=== PATIENT | female | born 1985 | race Caucasian/White ===

== ENCOUNTER 2018-03-03 17:21 | Emergency (ER) | payer SELFPAY ==
[~2018-03-03] VITALS: Ht 167.6 cm; Wt 111.8 kg
[~2018-03-03 17:21] MED LIST: BUPR150T8 PO; HYDR-3965 PO; HYDR-4383 PO; IBUP-1986 PO; NORE1TAB39 PO; ONDA4TAB59 PO; PENI500T2 PO; PSEU-259 CORPAK
[2018-03-03] MEDS ORDERED: ondansetron/PF 4mg/2ml inj IV ONE ×3 (17:35→19:10)
[2018-03-03] MEDS ORDERED: fentaNYL/PF 50MCG/1 ML 2ML syringe IV ONE ×3 (17:35→19:10)
[2018-03-03] MEDS ORDERED: etomidate 2mg/ml inj. IV ONE ×2 (18:30→20:25)
[2018-03-03] MEDS ORDERED: HYDR-4353 PO (20:19)
[2018-03-03] MEDS ORDERED: ONDA4TAB9 PO (20:19)
[2018-03-03 20:45] VITALS: BP 135/75
[2018-03-03] MEDS ORDERED: HYDROcodone/acetaminophen 10/325mg tab PO ONE (21:00)
[2018-03-03] MEDS ORDERED: ondansetron 4mg rapidly disintigrating tab PO ONE (21:00)
== END 2018-03-03 21:19 | disposition home or self-care (01) ==
LOC: ER 17:22
DX: S82.61XA Displaced fracture of lateral malleolus of right fibula, initial encounter for closed fracture (principal); F12.90 Cannabis use, unspecified, uncomplicated; Z90.89 Acquired absence of other organs; Z98.890 Other specified postprocedural states; Z79.899 Other long term (current) drug therapy; W18.49XA Other slipping, tripping and stumbling without falling, initial encounter; Y93.01 Activity, walking, marching and hiking; Y92.89 Other specified places as the place of occurrence of the external cause; Y99.9 Unspecified external cause status
CPT/HCPCS: 27788; 73600; 73610; 73630; 99152; 99285; J2405; J3010; J3490

== ENCOUNTER 2018-03-06 03:39 | Emergency (ER) | payer SELFPAY ==
[~2018-03-06] VITALS: Ht 167.6 cm; Wt 110.0 kg
[~2018-03-06 03:39] MED LIST changes: +HYDR-4353 PO; +ONDA4TAB9 PO
[2018-03-06] MEDS ORDERED: morphine 4 MG/ML inj SYRINge IM ONE (04:05)
[2018-03-06] MEDS ORDERED: ondansetron/PF 4mg/2ml inj IM ONE (04:05)
[2018-03-06] MEDS ORDERED: morphine 10mg/ml inj. IM ONE (04:10)
[2018-03-06 05:15] VITALS: BP 139/68
== END 2018-03-06 05:18 | disposition home or self-care (01) ==
LOC: ER 03:39
DX: S82.61XD Displaced fracture of lateral malleolus of right fibula, subsequent encounter for closed fracture with routine healing (principal); F12.90 Cannabis use, unspecified, uncomplicated; Z90.89 Acquired absence of other organs; Z98.890 Other specified postprocedural states; Z79.899 Other long term (current) drug therapy; W18.49XD Other slipping, tripping and stumbling without falling, subsequent encounter
CPT/HCPCS: 29515; 96372; 99284; J2270; J2405

== ENCOUNTER 2018-03-08 22:22 | Emergency (ER) | payer SELFPAY ==
[~2018-03-08] VITALS: Ht 167.6 cm; Wt 110.0 kg
[2018-03-08] MEDS ORDERED: ondansetron/PF 4mg/2ml inj IV ONE (23:55)
[2018-03-08] MEDS ORDERED: ringers solution, lactated 1000ml IV soln IV ONE (23:55)
[2018-03-08] MEDS ORDERED: diphenhydrAMINE 50 mg/ml inj IV ONE (23:55)
[2018-03-09] MEDS ORDERED: proCHLORperazine 10 MG/2 ml inj IV PRN (00:05)
[2018-03-09] MEDS ORDERED: ONDA4TAB6 PO (00:24)
[2018-03-09 00:55] LABS: PREOP URINE HCG NEGATIVE (NEGATIVE)
[2018-03-09 01:29] VITALS: BP 146/89
== END 2018-03-09 02:25 | disposition home or self-care (01) ==
LOC: ER 22:22
DX: S82.64XD Nondisplaced fracture of lateral malleolus of right fibula, subsequent encounter for closed fracture with routine healing (principal); G43.A0 Cyclical vomiting, in migraine, not intractable; F12.90 Cannabis use, unspecified, uncomplicated; Z98.890 Other specified postprocedural states; Z79.899 Other long term (current) drug therapy; X58.XXXD Exposure to other specified factors, subsequent encounter
CPT/HCPCS: 29515; 73600; 81025; 96361; 96374; 96375; 99284; J0780; J1200; J2405; J7030; J7120

== ENCOUNTER 2018-03-13 10:19 | Outpatient (CLI) | payer SELFPAY ==
[~2018-03-13 10:19] MED LIST changes: +ONDA4TAB6 PO
[2018-03-13 10:21] VITALS: BP 149/83
[2018-03-13 13:14] VITALS: BP 149/83
[2018-03-14] MEDS ORDERED: CYAN-19 PO (11:25)
[2018-03-14] MEDS ORDERED: CHOL10002 PO (11:25)
[2018-03-14] MEDS ORDERED: CITA40TA11 PO (11:25)
[2018-03-14] MEDS ORDERED: IBUP-1984 PO (11:25)
== END 2018-03-13 11:17 | disposition home or self-care (01) ==
LOC: ORTHO 10:19
PROVIDERS: ATTEND Nurse Practitioner Family
DX: S82.61XA Displaced fracture of lateral malleolus of right fibula, initial encounter for closed fracture (principal); S93.04XA Dislocation of right ankle joint, initial encounter; F32.9 Major depressive disorder, single episode, unspecified; G43.909 Migraine, unspecified, not intractable, without status migrainosus; F12.90 Cannabis use, unspecified, uncomplicated; F17.200 Nicotine dependence, unspecified, uncomplicated; Z79.899 Other long term (current) drug therapy; W00.2XXA Other fall from one level to another due to ice and snow, initial encounter; Y93.29 Activity, other involving ice and snow; Y92.89 Other specified places as the place of occurrence of the external cause; Y99.8 Other external cause status
CPT/HCPCS: 99215

== ENCOUNTER 2018-03-15 09:23 | Day surgery (SDC) | payer SELFPAY ==
[2018-03-14 11:30] LABS: BASOPHILS % (AUTO) 0.6 % (0-1); EOSINOPHILS # (AUTO) 0.2 X10'3 (0-0.9); EOSINOPHILS % (AUTO) 2.2 % (0-6); LYMPHOCYTES # (AUTO) 1.6 X10'3 (1.1-4.8); LYMPHOCYTES % (AUTO) 20.3 % (21-51); MEAN CORPUSCULAR HEMOGLOBIN 28.1 PG (27.0-31.0); MEAN CORPUSCULAR HGB CONC 33.2 % (33.0-36.5); MEAN CORPUSCULAR VOLUME 84.6 FL (78-98); MEAN PLATELET VOLUME 9.4 FL (7.4-10.4); MONOCYTES # (AUTO) 0.5 X10'3 (0-0.9); MONOCYTES % (AUTO) 5.8 % (2-12); NEUTROPHILS # (AUTO) 5.8 X10'3 (1.8-7.7); NEUTROPHILS % (AUTO) 71.1 % (42-75); PRE OP HEMATOCRIT 40.5 % (35.0-45.0); PRE OP HEMOGLOBIN 13.4 g/dL (12.0-16.0); PRE OP PLATELET COUNT 280 X10'3 (140-440); RED BLOOD COUNT 4.78 X10'6 (4.20-5.60); RED CELL DISTRIBUTION WIDTH 13.7 % (11.5-14.5)
[2018-03-14 11:46] LABS: ALBUMIN 3.6 G/DL (3.4-5.0); ALKALINE PHOSPHATASE 64 IU/L (46-116); BLOOD UREA NITROGEN 9 MG/DL (7-18); BUN/CREATININE RATIO 14.3 (6.6-38.0); CALCIUM 9.1 MG/DL (8.5-10.1); CHLORIDE 105 MMOL/L (99-107); CREATININE 0.63 MG/DL (0.40-0.90); PRE OP ALT 23 U/L (30-65); PRE OP ANION GAP 12 (8-16); PRE OP AST 13 U/L (10-37); PRE OP BILIRUB, TOTAL 0.6 MG/DL (0.0-1.0); PRE OP GLUCOSE 97 MG/DL (70-104); PRE OP POTASSIUM 3.4 MMOL/L (3.4-5.1); PRE OP SODIUM 141 MMOL/L (135-145); TOTAL CARBON DIOXIDE 23.7 MMOL/L (24-32); TOTAL PROTEIN 7.3 G/DL (6.4-8.2); eGFR > 90 ML/MIN
[2018-03-14 11:53] LABS: HCG SERUM QL NEGATIVE
[~2018-03-15] VITALS: Ht 167.6 cm; Wt 111.1 kg
[2018-03-15] VITALS (9 sets, daily range): BP systolic 132–171; BP diastolic 85–92
[~2018-03-15 09:23] MED LIST changes: -BUPR150T8 PO; +CHOL10002 PO; +CITA40TA11 PO; +CYAN-19 PO; -HYDR-3965 PO; -HYDR-4353 PO; -HYDR-4383 PO; +IBUP-1984 PO; -IBUP-1986 PO; -NORE1TAB39 PO; -ONDA4TAB59 PO; -ONDA4TAB6 PO; -ONDA4TAB9 PO; -PENI500T2 PO; -PSEU-259 CORPAK; +cefazolin/dext.iso 2gm/50ml 50 ML IV ONE; +famotidine 20mg tablet PO ONE; +ringers solution, lacted 1,000 ML IV SCH; +vancomycin inj 1,500 MG in normal saline 300ml IV soln IV ONE
[2018-03-15] MEDS ORDERED: midazolam 2 mg/2 ml injection ONE ×2 (11:20→11:37)
[2018-03-15] MEDS ORDERED: fentaNYL/PF 50MCG/1 ML 2ML syringe ONE ×2 (11:36→12:31)
[2018-03-15] MEDS ORDERED: ROPIVAcaine 0.5% (5mg/ml) 30ml vial ONE (11:39)
[2018-03-15] MEDS ORDERED: propofol inj 20 ML IV ONE ×2 (11:39→12:32)
[2018-03-15] MEDS ORDERED: dexamethasone sod phosphate 4mg/ml inj. ONE (12:05)
[2018-03-15] MEDS ORDERED: sevoflurane 250ml liquid IH ONE (12:08)
[2018-03-15] MEDS ORDERED: ceFAZolin 1000mg inj ONE (12:23)
[2018-03-15] MEDS ORDERED: BUPIVAcaine/PF 2.5mg/ml (0.25%) 10ml vial ONE (12:30)
[2018-03-15] MEDS ORDERED: ringers solution, lacted 1,000 ML IV SCH (12:41)
[2018-03-15] MEDS ORDERED: proCHLORperazine 10 MG/2 ml inj IV PRN (12:45)
[2018-03-15] MEDS ORDERED: morphine 4 MG/ML inj SYRINge IV PRN ×2 (12:45)
[2018-03-15] MEDS ORDERED: meperidine/PF 25mg/ml syringe IV PRN ×3 (12:45)
[2018-03-15] MEDS ORDERED: ondansetron/PF 4mg/2ml inj IV PRN (12:45)
[2018-03-15] MEDS ORDERED: ketorolac trometh. 30mg/ml inj. ONE (13:01)
--- NOTE | 2018-03-15 13:15 | NUR ---
Received from OR via bed, accompanied by Anesthesiologist. Report received. Initial physical assessment done and recorded.
[2018-03-15] MEDS ORDERED: HYDROcodone/acetaminophen 10/325mg tab PO ONE (13:35)
--- NOTE | 2018-03-15 14:40 | NUR ---
Discharge criteria met, discharge instructions given, demonstrates verbal understanding. Discharged home in good condition. No complains of pain during post op period, no pain meds given no complaints
== END 2018-03-15 14:15 | disposition home or self-care (01) ==
LOC: PAS 09:23
PROVIDERS: ATTEND Orthopaedic Surgery
DX: S82.61XA Displaced fracture of lateral malleolus of right fibula, initial encounter for closed fracture (principal); S93.431A Sprain of tibiofibular ligament of right ankle, initial encounter; F41.8 Other specified anxiety disorders; F32.9 Major depressive disorder, single episode, unspecified; G43.909 Migraine, unspecified, not intractable, without status migrainosus; F41.0 Panic disorder [episodic paroxysmal anxiety]; F12.90 Cannabis use, unspecified, uncomplicated; E66.9 Obesity, unspecified; Z68.39 Body mass index [BMI] 39.0-39.9, adult; Z87.2 Personal history of diseases of the skin and subcutaneous tissue; Z79.891 Long term (current) use of opiate analgesic; Z79.1 Long term (current) use of non-steroidal anti-inflammatories (NSAID); Z79.2 Long term (current) use of antibiotics; Z90.89 Acquired absence of other organs; Z98.890 Other specified postprocedural states; Z79.899 Other long term (current) drug therapy; W00.2XXA Other fall from one level to another due to ice and snow, initial encounter; Y93.01 Activity, walking, marching and hiking; Y92.89 Other specified places as the place of occurrence of the external cause; Y99.8 Other external cause status
CPT/HCPCS: 27792; 27829; 36415; 80053; 84703; 85025; A6449; J0690; J1100; J1885; J2250; J2405; J2704; J3010; J3370; J3490; A7000; J2795; J7120

== ENCOUNTER 2018-03-28 08:16 | Outpatient (CLI) | payer SELFPAY ==
[~2018-03-28 08:16] MED LIST changes: -cefazolin/dext.iso 2gm/50ml 50 ML IV ONE; -famotidine 20mg tablet PO ONE; -ringers solution, lacted 1,000 ML IV SCH; -vancomycin inj 1,500 MG in normal saline 300ml IV soln IV ONE
[2018-03-28 08:17] VITALS: BP 128/75
== END 2018-03-28 09:15 | disposition home or self-care (01) ==
LOC: ORTHO 08:16
PROVIDERS: ATTEND Nurse Practitioner Family
DX: S82.61XD Displaced fracture of lateral malleolus of right fibula, subsequent encounter for closed fracture with routine healing (principal); S93.04XD Dislocation of right ankle joint, subsequent encounter; F32.9 Major depressive disorder, single episode, unspecified; G43.909 Migraine, unspecified, not intractable, without status migrainosus; F12.90 Cannabis use, unspecified, uncomplicated; F17.200 Nicotine dependence, unspecified, uncomplicated; Z79.899 Other long term (current) drug therapy; W00.2XXD Other fall from one level to another due to ice and snow, subsequent encounter
CPT/HCPCS: 73600; 99213

== ENCOUNTER 2018-04-03 10:43 | Outpatient (CLI) | payer SELFPAY ==
[2018-04-03 10:39] VITALS: BP 138/84
== END 2018-04-03 11:37 | disposition home or self-care (01) ==
LOC: ORTHO 10:43
PROVIDERS: ATTEND Nurse Practitioner Family
DX: S82.831D Other fracture of upper and lower end of right fibula, subsequent encounter for closed fracture with routine healing (principal); S93.04XD Dislocation of right ankle joint, subsequent encounter; F17.200 Nicotine dependence, unspecified, uncomplicated; F12.90 Cannabis use, unspecified, uncomplicated; W00.0XXD Fall on same level due to ice and snow, subsequent encounter
CPT/HCPCS: 99214

== ENCOUNTER 2018-04-16 11:04 | Outpatient (CLI) | payer BC ==
[2018-04-16 11:04] VITALS: BP 117/73
== END 2018-04-16 12:14 | disposition home or self-care (01) ==
LOC: ORTHO 11:04
PROVIDERS: ATTEND Nurse Practitioner Family
DX: S82.831D Other fracture of upper and lower end of right fibula, subsequent encounter for closed fracture with routine healing (principal); F17.200 Nicotine dependence, unspecified, uncomplicated; Z79.899 Other long term (current) drug therapy; W01.0XXD Fall on same level from slipping, tripping and stumbling without subsequent striking against object, subsequent encounter
CPT/HCPCS: 73600; G0463

== ENCOUNTER 2018-05-13 13:27 | Outpatient (CLI) | payer BC ==
[2018-05-13 13:27] VITALS: BP 144/91
== END 2018-05-13 14:06 | disposition home or self-care (01) ==
LOC: ORTHO 13:27
PROVIDERS: ATTEND Nurse Practitioner Family
DX: S82.61XD Displaced fracture of lateral malleolus of right fibula, subsequent encounter for closed fracture with routine healing (principal); S93.04XD Dislocation of right ankle joint, subsequent encounter; F17.200 Nicotine dependence, unspecified, uncomplicated; W00.0XXD Fall on same level due to ice and snow, subsequent encounter
CPT/HCPCS: 73600; 99213

== ENCOUNTER 2018-06-04 13:28 | Outpatient (CLI) | payer BC ==
[2018-06-04 13:26] VITALS: BP 133/89
== END 2018-06-04 14:32 | disposition home or self-care (01) ==
LOC: ORTHO 13:28
PROVIDERS: ATTEND Nurse Practitioner Family
DX: S82.831D Other fracture of upper and lower end of right fibula, subsequent encounter for closed fracture with routine healing (principal); S93.04XD Dislocation of right ankle joint, subsequent encounter; G43.909 Migraine, unspecified, not intractable, without status migrainosus; F41.8 Other specified anxiety disorders; W00.0XXD Fall on same level due to ice and snow, subsequent encounter
CPT/HCPCS: 73610; 99213

== ENCOUNTER 2022-03-16 14:56 | Outpatient (CLI) | payer BC ==
[~2022-03-16 14:56] MED LIST changes: -CITA40TA11 PO; +CITA40TA32 PO; -CYAN-19 PO; +CYAN-51 PO
== END 2022-03-16 23:59 | disposition home or self-care (01) ==
LOC: RAD 14:56
PROVIDERS: ATTEND Chiropractor
DX: M47.812 Spondylosis without myelopathy or radiculopathy, cervical region (principal); M48.02 Spinal stenosis, cervical region; M25.78 Osteophyte, vertebrae
CPT/HCPCS: 72050

== ENCOUNTER 2022-08-03 08:37 | Outpatient (CLI) | payer BC ==
[2022-08-03 11:30] LABS: CLARITY,URINE SLIGHTLY CLOUDY (Clear); COLOR,URINE YELLOW (Yellow); GLUCOSE, URINE NEGATIVE (Neg); KETONES,URINE NEGATIVE (Neg); LEUKOCYTE ESTERASE ,URINE NEGATIVE (Neg); NITRITES, URINE NEGATIVE (Neg); OCCULT BLOOD,URINE NEGATIVE (Neg); PROTEIN,URINE NEGATIVE (Neg); UROBILINOGEN,URINE 0.2 E.U/dL (0.2-1.0)
[2022-08-03 11:34] LABS: UA COLLECTION TYPE CLN CATCH MIDSTREAM
[2022-08-03 11:38] LABS: BACTERIA,URINE FEW /HPF (Neg); BASOPHILS # (AUTO) 0.1 X10'3 (0-0.2); BASOPHILS % (AUTO) 0.9 % (0-1); EOSINOPHILS # (AUTO) 0.2 X10'3 (0-0.9); EOSINOPHILS % (AUTO) 1.6 % (0-6); HEMATOCRIT 42.5 % (35.0-45.0); HEMOGLOBIN 14.2 g/dl (12.0-16.0); LYMPHOCYTES # (AUTO) 2.4 X10'3 (1.1-4.8); LYMPHOCYTES % (AUTO) 22.3 % (21-51); MEAN CORPUSCULAR HEMOGLOBIN 28.3 PG (27.0-31.0); MEAN CORPUSCULAR HGB CONC 33.5 g/dL (33.0-36.5); MEAN CORPUSCULAR VOLUME 84.5 FL (78-98); MEAN PLATELET VOLUME 9.1 FL (7.4-10.4); MONOCYTES # (AUTO) 0.8 X10'3 (0-0.9); MONOCYTES % (AUTO) 7.6 % (2-12); NEUTROPHILS # (AUTO) 7.4 X10'3 (1.8-7.7); NEUTROPHILS % (AUTO) 67.6 % (42-75); PLATELET COUNT 270 X10'3 (140-440); RBC,URINE NONE SEEN /HPF (0-2); RED BLOOD COUNT 5.02 X10'6 (4.20-5.60); RED CELL DISTRIBUTION WIDTH 13.6 % (11.5-14.5); WBC,URINE 0-4 /HPF (0-4)
[2022-08-03 11:40] LABS: SQUAMOUS EPITHELIAL CELL,UR FEW /LPF (FEW)
[2022-08-03 11:53] LABS: ALANINE AMINOTRANSFERASE 28 U/L (12-78); ALBUMIN 3.9 G/DL (3.4-5.0); ALKALINE PHOSPHATASE 85 IU/L (46-116); ANION GAP 8 (8-16); ASPARTATE AMINO TRANSFERASE 15 U/L (10-37); BILIRUBIN,TOTAL 0.4 MG/DL (0.1-1.0); BLOOD UREA NITROGEN 8 MG/DL (7-18); BUN/CREATININE RATIO 11.9 (10.0-20.0); CALCIUM 8.7 MG/DL (8.5-10.1); CHLORIDE 105 MMOL/L (99-107); CHOL/HDL RATIO 4.7 (0.00-4.99); CHOLESTEROL 203 MG/DL (0-200); CREATININE 0.67 MG/DL (0.40-0.90); GLUCOSE 91 MG/DL (70-104); HDL CHOLESTEROL 43 MG/DL (35-60); LDL CHOLESTEROL 136 MG/DL (50-100); POTASSIUM 3.6 MMOL/L (3.5-5.1); SODIUM 139 MMOL/L (135-145); TOTAL CARBON DIOXIDE 25.8 MMOL/L (24-32); TOTAL PROTEIN 7.9 G/DL (6.4-8.2); TRIGLYCERIDES 100 MG/DL (20-135); eGFR > 90 ML/MIN
== END 2022-08-03 23:59 | disposition home or self-care (01) ==
LOC: LAB 08:37
PROVIDERS: ATTEND Nurse Practitioner
DX: G43.111 Migraine with aura, intractable, with status migrainosus (principal); Z76.89 Persons encountering health services in other specified circumstances; E66.9 Obesity, unspecified; Z68.36 Body mass index [BMI] 36.0-36.9, adult; F90.9 Attention-deficit hyperactivity disorder, unspecified type; F41.9 Anxiety disorder, unspecified; F32.A Depression, unspecified
CPT/HCPCS: 36415; 80053; 80061; 81001; 84439; 84443; 85025

== ENCOUNTER 2022-12-28 07:32 | Emergency (ER) | payer BC ==
[~2022-12-28] VITALS: Ht 167.6 cm; Wt 123.6 kg
[~2022-12-28 07:32] MED LIST changes: +CYAN-104 PO; -CYAN-51 PO
[2022-12-28 07:34] VITALS: BP 178/113; PULSE 92; RESP 18; O2SAT 99
[2022-12-28] MEDS ORDERED: ESCI20TA17 PO (09:27)
[2022-12-28 09:36] VITALS: TEMP 98.5
== END 2022-12-28 09:41 | disposition home or self-care (01) ==
LOC: ER 07:33
DX: F31.9 Bipolar disorder, unspecified (principal); Z76.0 Encounter for issue of repeat prescription; G43.909 Migraine, unspecified, not intractable, without status migrainosus; F12.10 Cannabis abuse, uncomplicated; Z79.899 Other long term (current) drug therapy
CPT/HCPCS: 99281

== ENCOUNTER 2023-05-08 13:11 | Outpatient (CLI) | payer BC ==
[~2023-05-08 13:11] MED LIST changes: +ESCI20TA17 PO
[2023-05-08 13:56] LABS: BASOPHILS # (AUTO) 0.1 X10'3 (0-0.2); BASOPHILS % (AUTO) 0.7 % (0-1); EOSINOPHILS # (AUTO) 0.1 X10'3 (0-0.9); HEMATOCRIT 44.2 % (35.0-45.0); HEMOGLOBIN 14.6 g/dl (12.0-16.0); LYMPHOCYTES # (AUTO) 2.6 X10'3 (1.1-4.8); LYMPHOCYTES % (AUTO) 22.6 % (21-51); MEAN CORPUSCULAR HEMOGLOBIN 27.7 PG (27.0-31.0); MEAN CORPUSCULAR HGB CONC 33.1 g/dL (33.0-36.5); MEAN CORPUSCULAR VOLUME 83.5 FL (78-98); MEAN PLATELET VOLUME 8.8 FL (7.4-10.4); MONOCYTES # (AUTO) 0.8 X10'3 (0-0.9); MONOCYTES % (AUTO) 6.5 % (2-12); NEUTROPHILS # (AUTO) 8.1 X10'3 (1.8-7.7); NEUTROPHILS % (AUTO) 69.2 % (42-75); PLATELET COUNT 264 X10'3 (140-440); RED BLOOD COUNT 5.29 X10'6 (4.20-5.60); RED CELL DISTRIBUTION WIDTH 13.2 % (11.5-14.5); WHITE BLOOD COUNT 11.7 X10'3 (4.5-11.0)
[2023-05-08 14:12] LABS: ALANINE AMINOTRANSFERASE 36 U/L (12-78); ALKALINE PHOSPHATASE 93 IU/L (46-116); ANION GAP 10 (8-16); ASPARTATE AMINO TRANSFERASE 16 U/L (10-37); BILIRUBIN,TOTAL 0.6 MG/DL (0.1-1.0); BLOOD UREA NITROGEN 9 MG/DL (7-18); BUN/CREATININE RATIO 15.5 (10.0-20.0); CHLORIDE 106 MMOL/L (99-107); CHOL/HDL RATIO 3.7 (0.00-4.99); CHOLESTEROL 200 MG/DL (0-200); CREATININE 0.58 MG/DL (0.40-0.90); FREE T4 (FREE THYROXINE) 0.82 NG/DL (0.73-1.40); GLUCOSE 97 MG/DL (70-104); HDL CHOLESTEROL 54 MG/DL (35-60); LDL CHOLESTEROL 115 MG/DL (50-100); SODIUM 142 MMOL/L (135-145); THYROID STIMULATING HORMONE 2.85 ulU/ml (0.34-4.50); TOTAL CARBON DIOXIDE 25.9 MMOL/L (24-32); TOTAL PROTEIN 8.1 G/DL (6.4-8.2); TRIGLYCERIDES 96 MG/DL (20-135); eGFR > 90 ML/MIN
== END 2023-05-08 23:59 | disposition home or self-care (01) ==
LOC: LAB 13:11
PROVIDERS: ATTEND Nurse Practitioner
DX: F90.9 Attention-deficit hyperactivity disorder, unspecified type (principal); G43.111 Migraine with aura, intractable, with status migrainosus; E66.9 Obesity, unspecified; F41.9 Anxiety disorder, unspecified; F32.A Depression, unspecified; Z76.89 Persons encountering health services in other specified circumstances; Z68.36 Body mass index [BMI] 36.0-36.9, adult
CPT/HCPCS: 80053; 80061; 84439; 84443; 85025

== ENCOUNTER 2023-08-28 09:15 | Outpatient (CLI) | payer BC | END 2023-08-28 23:59 | disposition home or self-care (01) | LOC: RAD 09:15 | PROVIDERS: ATTEND Registered Nurse | DX: G43.111 Migraine with aura, intractable, with status migrainosus (principal) | CPT/HCPCS: 70450; 74177 ==

== ENCOUNTER 2023-11-23 07:33 | Outpatient (CLI) | payer BC ==
[2023-11-27 08:10] LABS: FOLATE SERUM(FOLIC) 10.1 ng/mL (>3.0)
[2023-11-27 13:24] LABS: ESTRADIOL 88.1 pg/mL (.)
== END 2023-11-23 23:59 | disposition home or self-care (01) ==
LOC: LAB 07:33
PROVIDERS: ATTEND Registered Nurse
DX: Z00.00 Encounter for general adult medical examination without abnormal findings (principal); R73.09 Other abnormal glucose
CPT/HCPCS: 36415; 82607; 82670; 82679; 82746

== ENCOUNTER 2024-04-04 06:37 | Outpatient (CLI) | payer BC | END 2024-04-04 23:59 | disposition home or self-care (01) | LOC: MRI02 06:37 | PROVIDERS: ATTEND Nurse Practitioner Family | DX: M50.222 Other cervical disc displacement at C5-C6 level (principal); M50.323 Other cervical disc degeneration at C6-C7 level; M48.02 Spinal stenosis, cervical region; G43.109 Migraine with aura, not intractable, without status migrainosus | CPT/HCPCS: 72141 ==

== ENCOUNTER 2024-04-16 14:39 | Outpatient (CLI) | payer BC ==
[2024-04-16 14:59] LABS: BASOPHILS # (AUTO) 0.1 X10'3 (0-0.2); BASOPHILS % (AUTO) 0.9 % (0-1); EOSINOPHILS # (AUTO) 0.2 X10'3 (0-0.9); EOSINOPHILS % (AUTO) 1.5 % (0-6); HEMATOCRIT 41.4 % (35.0-45.0); HEMOGLOBIN 14.3 g/dl (12.0-16.0); LYMPHOCYTES # (AUTO) 3.2 X10'3 (1.1-4.8); LYMPHOCYTES % (AUTO) 26.5 % (21-51); MEAN CORPUSCULAR HEMOGLOBIN 28.5 PG (27.0-31.0); MEAN CORPUSCULAR HGB CONC 34.5 g/dL (33.0-36.5); MEAN CORPUSCULAR VOLUME 82.5 FL (78-98); MEAN PLATELET VOLUME 8.2 FL (7.4-10.4); MONOCYTES # (AUTO) 0.7 X10'3 (0-0.9); NEUTROPHILS # (AUTO) 7.8 X10'3 (1.8-7.7); NEUTROPHILS % (AUTO) 65.1 % (42-75); PLATELET COUNT 296 X10'3 (140-440); RED BLOOD COUNT 5.02 X10'6 (4.20-5.60); RED CELL DISTRIBUTION WIDTH 13.6 % (11.5-14.5)
[2024-04-16 15:35] LABS: ALANINE AMINOTRANSFERASE 31 U/L (12-78); ALBUMIN 3.8 G/DL (3.4-5.0); ALKALINE PHOSPHATASE 90 IU/L (46-116); ANION GAP 10 (8-16); ASPARTATE AMINO TRANSFERASE 20 U/L (10-37); BILIRUBIN,TOTAL 0.6 MG/DL (0.1-1.0); BLOOD UREA NITROGEN 10 MG/DL (7-18); BUN/CREATININE RATIO 16.7 (10.0-20.0); CALCIUM 8.8 MG/DL (8.5-10.1); CHLORIDE 102 MMOL/L (99-107); CHOL/HDL RATIO 4.3 (0.00-4.99); CHOLESTEROL 204 MG/DL (0-200); FREE T4 (FREE THYROXINE) 0.89 NG/DL (0.73-1.40); GLUCOSE 95 MG/DL (70-104); HDL CHOLESTEROL 48 MG/DL (35-60); LDL CHOLESTEROL 132 MG/DL (50-100); POTASSIUM 3.8 MMOL/L (3.5-5.1); SODIUM 137 MMOL/L (135-145); THYROID STIMULATING HORMONE 2.78 ulU/ml (0.34-4.50); TOTAL PROTEIN 7.7 G/DL (6.4-8.2); TRIGLYCERIDES 161 MG/DL (20-135); eGFR > 90 ML/MIN
== END 2024-04-16 23:59 | disposition home or self-care (01) ==
LOC: LAB 14:39
PROVIDERS: ATTEND Registered Nurse
DX: Z13.220 Encounter for screening for lipoid disorders (principal); R73.09 Other abnormal glucose; E66.9 Obesity, unspecified; R53.83 Other fatigue
CPT/HCPCS: 36415; 80053; 80061; 84439; 84443; 85025

== ENCOUNTER 2024-05-02 05:45 | Inpatient (IN) | payer BC ==
[2024-04-29 10:58] LABS: BASOPHILS # (AUTO) 0.1 X10'3 (0-0.2); BASOPHILS % (AUTO) 0.7 % (0-1); EOSINOPHILS # (AUTO) 0.1 X10'3 (0-0.9); EOSINOPHILS % (AUTO) 0.8 % (0-6); LYMPHOCYTES # (AUTO) 2.5 X10'3 (1.1-4.8); LYMPHOCYTES % (AUTO) 23.2 % (21-51); MEAN CORPUSCULAR HEMOGLOBIN 28.1 PG (27.0-31.0); MEAN CORPUSCULAR HGB CONC 33.5 g/dL (33.0-36.5); MEAN PLATELET VOLUME 8.5 FL (7.4-10.4); MONOCYTES # (AUTO) 0.7 X10'3 (0-0.9); MONOCYTES % (AUTO) 6.7 % (2-12); NEUTROPHILS # (AUTO) 7.5 X10'3 (1.8-7.7); NEUTROPHILS % (AUTO) 68.6 % (42-75); PRE OP HEMATOCRIT 41.3 % (35.0-45.0); PRE OP HEMOGLOBIN 13.8 g/dL (12.0-16.0); PRE OP PLATELET COUNT 256 X10'3 (140-440); PRE OP WHITE BLOOD COUNT 10.9 10'3 (4.8-10.8); RED BLOOD COUNT 4.91 X10'6 (4.20-5.60); RED CELL DISTRIBUTION WIDTH 13.7 % (11.5-14.5)
[2024-04-29 11:37] LABS: ALBUMIN 3.8 G/DL (3.4-5.0); ALBUMIN/GLOBULIN RATIO 0.9 (1.1-1.5); ALKALINE PHOSPHATASE 89 IU/L (46-116); BLOOD UREA NITROGEN 12 MG/DL (7-18); BUN/CREATININE RATIO 20.7 (10.0-20.0); CALCIUM 9.1 MG/DL (8.5-10.1); CHLORIDE 104 MMOL/L (99-107); CREATININE 0.58 MG/DL (0.40-0.90); PRE OP ALT 34 U/L (30-65); PRE OP ANION GAP 8 (8-16); PRE OP AST 22 U/L (10-37); PRE OP BILIRUB, TOTAL 0.6 MG/DL (0.0-1.0); PRE OP GLUCOSE 106 MG/DL (70-104); PRE OP POTASSIUM 4.3 MMOL/L (3.4-5.1); PRE OP SODIUM 139 MMOL/L (135-145); TOTAL PROTEIN 8.1 G/DL (6.4-8.2); eGFR > 90 ML/MIN
[2024-05-02] VITALS (25 sets, daily range): BP systolic 129–203; BP diastolic 70–113; PULSE 89–131; RESP 12–20; TEMP 97.7–98.9; O2SAT 95–100
[~2024-05-02] VITALS: Ht 167.6 cm; Wt 129.8 kg
[~2024-05-02 05:45] MED LIST changes: +ACET-1025 PO; +CA/MG/ZINC; -CHOL10002 PO; -CITA40TA32 PO; -CYAN-104 PO; -ESCI20TA17 PO; +ESCI20TA39 PO; -IBUP-1984 PO; +IBUP-24 PO; +METF-900 PO; +POTA99CA PO; +RIZA10TA98 PO
[2024-05-02] MEDS: ringers solution, lacted 1,000 ML IV SCH ×3 (06:14→13:59)
[2024-05-02] MEDS: famotidine 20mg tablet PO ONE (06:14)
[2024-05-02] MEDS: CEFAZOLIN 3GM/DEXTROSE 150mL 150 ML IV ONE (06:15)
[2024-05-02] MEDS ORDERED: gentamicin 40 MG/1 ML inj ONE (06:40)
[2024-05-02] MEDS ORDERED: bacitracin 15gm ointment TP ONE (06:40)
[2024-05-02] MEDS ORDERED: gelatin sponge, absorbable (Gelfoam 100) sponge TP ONE (06:40)
[2024-05-02] MEDS ORDERED: BUPIVAcaine 2.5mg/ml inj 50ml vial (contains preservative) ONE ×2 (06:40→09:09)
[2024-05-02] MEDS ORDERED: Thrombin (Bovine) 5,000 unit vial TP ONE (06:41)
[2024-05-02] MEDS: diazepam 5mg tablet PO ONE (08:00)
[2024-05-02] MEDS ORDERED: morphine 2 MG/ML inj. syringe IV PRN (08:00)
[2024-05-02] MEDS ORDERED: proCHLORperazine 10 MG/2 ml inj IV PRN (08:00)
[2024-05-02] MEDS ORDERED: meperidine/PF 25mg/ml syringe IV PRN ×2 (08:00)
[2024-05-02] MEDS ORDERED: enalaprilat 1.25mg/ml 2ml vial IV PRN (08:00)
[2024-05-02] MEDS ORDERED: MIDAZolam 1 MG/ML 5ML VIAL ONE (08:14)
[2024-05-02] MEDS ORDERED: fentaNYL /PF 50mcg/ml 5ml ampule ONE ×3 (08:14→11:24)
[2024-05-02] MEDS ORDERED: LIDOcaine 1% (10mg/ml) 2ml vial ONE (08:17)
[2024-05-02] MEDS ORDERED: LIDOcaine 2% (20mg/ml) 5ml vial ONE (08:18)
[2024-05-02] MEDS ORDERED: propofol inj 20 ML IV ONE (08:18)
[2024-05-02] MEDS ORDERED: sevoflurane 250ml liquid IH ONE (08:22)
[2024-05-02] MEDS: BUPIVAcaine/PF 2.5 mg/ml (0.25%) 30ml vial IJ ONE (08:22)
[2024-05-02] MEDS ORDERED: rocuronium 10mg/ml inj IV ONE ×2 (09:11→09:19)
[2024-05-02] MEDS ORDERED: dexamethasone sod phosphate 4mg/ml inj. ONE (09:11)
[2024-05-02] MEDS: docusate sod 100mg capsule PO SCH (13:00)
[2024-05-02] MEDS ORDERED: HYDROcodone/acetaminophen 10/325mg tab PO PRN (13:40)
[2024-05-02] MEDS: acetaminophen 1,000mg/100ml IV 100 ML IV ONE (14:04)
[2024-05-02] MEDS: labetalol 20mg/4ml (5mg/ml) syringe IV PRN (14:12)
[2024-05-02] MEDS: ondansetron/PF 4mg/2ml inj IV PRN ×2 (14:14→17:47)
[2024-05-02] MEDS: meperidine/PF 25mg/ml syringe IV PRN (14:37)
[2024-05-02] MEDS: morphine 4 MG/ML inj SYRINge IV PRN (14:56)
[2024-05-02] MEDS ORDERED: glucagon, human recombinant 1mg kit SUBCUT PRN (16:45)
[2024-05-02] MEDS ORDERED: DEXTROSE 15 GM of carb/4 tabs (each vial/BOTTLE has 4 tablets) PO PRN ×2 (16:45)
[2024-05-02] MEDS ORDERED: dextrose 50%-water 50ml dispensing syringe IV PRN ×2 (16:45)
[2024-05-02] MEDS: HYDROmorphone inj. 0.5 MG/0.5 ML DISP.SYRIN IV PRN (17:49)
[2024-05-02] MEDS: INSULIN LISPRO 100 UNIT/ML INSULN.PEN MULTI-DOSE SQ SCH (19:41)
[2024-05-02] MEDS: metoclopramide 10mg tablet PO ONE (21:04)
[2024-05-02] MEDS: ketorolac trometh 15mg/ml vial 15 MG/ML ML IV PRN (21:05)
[2024-05-03] MEDS: ibuprofen 200mg tablet PO PRN (00:45)
[2024-05-03 02:00] VITALS: BP 130/73; PULSE 92; RESP 16; TEMP 98.5; O2SAT 99
[2024-05-03 06:00] VITALS: BP 139/78; PULSE 97; RESP 16; TEMP 97.9; O2SAT 99
[2024-05-03 07:00] VITALS: RESP 16; O2SAT 99
[2024-05-03] MEDS: ESCITALOPRAM 10 mg tablet 10 MG TABLET PO SCH (07:50)
[2024-05-03] MEDS: potassium chloride 10mEq ER tablet PO SCH (07:50)
[2024-05-03 10:00] VITALS: BP 148/80; PULSE 92; RESP 18; TEMP 98.6; O2SAT 99
[2024-05-03] MEDS ORDERED: metoclopramide 10mg/10 ml UD oral solution PO PRN (10:25)
[2024-05-03] MEDS: metoclopramide 10mg tablet PO PRN (14:34)
[2024-05-03] MEDS ORDERED: hydrALAZINE 20mg/ml inj. IV PRN (15:10)
[2024-05-03] MEDS: losartan 50mg tablet PO ONE (15:55)
[2024-05-03] MEDS: HYDROcodone/acetaminophen 10/325mg tab PO PRN (15:59)
[2024-05-03 16:02] LABS: BASOPHILS # (AUTO) 0.1 X10'3 (0-0.2); BASOPHILS % (AUTO) 0.5 % (0-1); EOSINOPHILS % (AUTO) 0.1 % (0-6); HEMATOCRIT 37.2 % (35.0-45.0); HEMOGLOBIN 12.4 g/dl (12.0-16.0); LYMPHOCYTES % (AUTO) 15.5 % (21-51); MEAN CORPUSCULAR HEMOGLOBIN 28.1 PG (27.0-31.0); MEAN CORPUSCULAR HGB CONC 33.3 g/dL (33.0-36.5); MEAN CORPUSCULAR VOLUME 84.5 FL (78-98); MEAN PLATELET VOLUME 8.6 FL (7.4-10.4); MONOCYTES # (AUTO) 0.9 X10'3 (0-0.9); MONOCYTES % (AUTO) 6.9 % (2-12); NEUTROPHILS # (AUTO) 9.9 X10'3 (1.8-7.7); PLATELET COUNT 235 X10'3 (140-440); RED CELL DISTRIBUTION WIDTH 13.7 % (11.5-14.5); WHITE BLOOD COUNT 12.9 X10'3 (4.5-11.0)
[2024-05-03 16:28] LABS: ALANINE AMINOTRANSFERASE 25 U/L (12-78); ALBUMIN 3.3 G/DL (3.4-5.0); ALBUMIN/GLOBULIN RATIO 0.9 (1.1-1.5); ALKALINE PHOSPHATASE 73 IU/L (46-116); ANION GAP 9 (8-16); ASPARTATE AMINO TRANSFERASE 17 U/L (10-37); BILIRUBIN,TOTAL 0.6 MG/DL (0.1-1.0); BLOOD UREA NITROGEN 8 MG/DL (7-18); BUN/CREATININE RATIO 13.6 (10.0-20.0); CALCIUM 8.2 MG/DL (8.5-10.1); CHLORIDE 106 MMOL/L (99-107); CREATININE 0.59 MG/DL (0.40-0.90); GLUCOSE 135 MG/DL (70-104); POTASSIUM 3.4 MMOL/L (3.5-5.1); SODIUM 138 MMOL/L (135-145); TOTAL CARBON DIOXIDE 23.1 MMOL/L (24-32); TOTAL PROTEIN 7.1 G/DL (6.4-8.2); eCRCL 122 ML/MIN; eGFR > 90 ML/MIN
[2024-05-03] MEDS ORDERED: magnesium sulf-water 4G/100mL 100 ML IV PRN (17:20)
[2024-05-03] MEDS ORDERED: magnesium sulf-water 2g/50mL 50 ML IV PRN (17:20)
[2024-05-03] MEDS ORDERED: potassium Cl 20 mEq SR tablet PO PRN (17:20)
[2024-05-03] MEDS ORDERED: potassium Cl 40MEQ/1/2NS 520ml 520 ML IV PRN (17:20)
[2024-05-03] MEDS: amox tr/potassium clavulanate 875/125mg TAB PO SCH (17:35)
[2024-05-03] MEDS: potassium Cl 20 mEq SR tablet PO PRN (17:35)
[2024-05-03] MEDS: cyclobenzaprine 10mg tablet PO PRN (17:35)
[2024-05-03 18:30] VITALS: BP 156/64; PULSE 91; RESP 16; TEMP 97.8; O2SAT 99
[2024-05-03] MEDS: K and/or MAG REPLACEMENT MC SCH (20:00)
[2024-05-03] MEDS: heparin, porcine 5000 units/ml vial SQ SCH (21:15)
[2024-05-03 22:00] VITALS: BP 112/65; PULSE 100; RESP 16; TEMP 98.3; O2SAT 97
[2024-05-04 06:00] VITALS: BP 115/71; PULSE 76; RESP 16; TEMP 98; O2SAT 97
[2024-05-04 06:07] LABS: ALANINE AMINOTRANSFERASE 27 U/L (12-78); ALBUMIN 3.3 G/DL (3.4-5.0); ALBUMIN/GLOBULIN RATIO 0.8 (1.1-1.5); ALKALINE PHOSPHATASE 81 IU/L (46-116); ANION GAP 9 (8-16); ASPARTATE AMINO TRANSFERASE 23 U/L (10-37); BASOPHILS # (AUTO) 0.1 X10'3 (0-0.2); BASOPHILS % (AUTO) 0.6 % (0-1); BILIRUBIN,TOTAL 0.7 MG/DL (0.1-1.0); BLOOD UREA NITROGEN 6 MG/DL (7-18); BUN/CREATININE RATIO 11.3 (10.0-20.0); CALCIUM 8.1 MG/DL (8.5-10.1); CHLORIDE 105 MMOL/L (99-107); CREATININE 0.53 MG/DL (0.40-0.90); EOSINOPHILS % (AUTO) 0.1 % (0-6); GLUCOSE 153 MG/DL (70-104); HEMATOCRIT 36.9 % (35.0-45.0); HEMOGLOBIN 12.6 g/dl (12.0-16.0); LYMPHOCYTES # (AUTO) 1.7 X10'3 (1.1-4.8); LYMPHOCYTES % (AUTO) 15.9 % (21-51); MAGNESIUM 2.2 MG/DL (1.5-2.4); MEAN CORPUSCULAR HEMOGLOBIN 28.8 PG (27.0-31.0); MEAN CORPUSCULAR HGB CONC 34.2 g/dL (33.0-36.5); MEAN CORPUSCULAR VOLUME 84.1 FL (78-98); MEAN PLATELET VOLUME 9.1 FL (7.4-10.4); MONOCYTES # (AUTO) 0.7 X10'3 (0-0.9); MONOCYTES % (AUTO) 6.6 % (2-12); NEUTROPHILS # (AUTO) 8.1 X10'3 (1.8-7.7); NEUTROPHILS % (AUTO) 76.8 % (42-75); PLATELET COUNT 271 X10'3 (140-440); POTASSIUM 3.5 MMOL/L (3.5-5.1); RED BLOOD COUNT 4.39 X10'6 (4.20-5.60); RED CELL DISTRIBUTION WIDTH 13.4 % (11.5-14.5); SODIUM 137 MMOL/L (135-145); TOTAL CARBON DIOXIDE 23.4 MMOL/L (24-32); TOTAL PROTEIN 7.4 G/DL (6.4-8.2); WHITE BLOOD COUNT 10.5 X10'3 (4.5-11.0); eCRCL 136 ML/MIN; eGFR > 90 ML/MIN
[2024-05-04] MEDS ORDERED: HYDR-3965 PO (07:21)
[2024-05-04] MEDS ORDERED: LOSA25TA41 PO (07:25)
[2024-05-04 07:52] VITALS: BP_SYST 115; PULSE 76
[2024-05-04] MEDS: losartan 25mg tablet PO SCH (07:52)
[2024-05-04] MEDS ORDERED: losartan 50mg tablet PO SCH (08:00)
[2024-05-04] MEDS ORDERED: AMOX-580 PO (08:37)
[2024-05-04] MEDS ORDERED: CYCL-1 PO (11:45)
== END 2024-05-04 12:05 | disposition home health service (06) | DRG 473 ==
LOC: PAS 05:45 → PAS IN 13:47 → ORTHO 4S 17:15
PROVIDERS: ADMIT Neurological Surgery; ATTEND Nurse Practitioner Family
PROC: 0RB30ZZ Excision of Cervical Vertebral Disc, Open Approach (ICD-10-PCS; 2024-05-02)
PROC: 00NW0ZZ Release Cervical Spinal Cord, Open Approach (ICD-10-PCS; 2024-05-02)
PROC: 4A11X4G Monitoring of Peripheral Nervous Electrical Activity, Intraoperative, External Approach (ICD-10-PCS; 2024-05-02)
PROC: 0RG20A0 Fusion of 2 or more Cervical Vertebral Joints with Interbody Fusion Device, Anterior Approach, Anterior Column, Open Approach (ICD-10-PCS; principal; 2024-05-02 08:22)
DX: M48.02 Spinal stenosis, cervical region (principal); E11.9 Type 2 diabetes mellitus without complications; G43.909 Migraine, unspecified, not intractable, without status migrainosus; M54.12 Radiculopathy, cervical region; E87.6 Hypokalemia; I10 Essential (primary) hypertension; F32.A Depression, unspecified; F41.9 Anxiety disorder, unspecified; Z79.84 Long term (current) use of oral hypoglycemic drugs
CPT/HCPCS: Z7506; Z7508; 36415; 72040; 76000; 80053; 82948; 83036; 83735; 85025; 86885; 86900; 86901; 93005; 97116; 97161; 97530; A4215; A4340; A4355; A4618; A6258; A6449; A7000; C1713; C9250; G0378; J0131; J1100; J1171; J1580; J1644; J1815; J1885; J2003; J2175; J2250; J2270; J2405; J2704; J3010; J3490; J7050; J7120

== ENCOUNTER 2024-06-19 11:29 | Outpatient (CLI) | payer BC ==
[~2024-06-19 11:29] MED LIST changes: +AMOX-580 PO; +CYCL-1 PO; +LOSA25TA41 PO
== END 2024-06-19 23:59 | disposition home or self-care (01) ==
LOC: LAB 11:29
PROVIDERS: ATTEND Neurological Surgery
DX: M50.10 Cervical disc disorder with radiculopathy, unspecified cervical region (principal); M48.02 Spinal stenosis, cervical region; M43.22 Fusion of spine, cervical region
CPT/HCPCS: 72040

== ENCOUNTER 2025-01-21 05:04 | Outpatient (CLI) | payer BC ==
--- NOTE | 2025-01-21 08:22 | RADIOLOGY REPORT ---
[facility]: CERVICALGIA COMPARISON: DI CERVICAL SPINE LTD on DOS: 06/19/24, DI CERVICAL SPINE LTD on DOS: 05/02/24, CT CERVICAL SPINE on DOS: 07/17/22, CERVICAL SPINE CMPLT on DOS: 03/16/22 TECHNIQUE: 3 views of the cervical spine were obtained. FINDINGS: The cervical vertebral alignment is normal. The predental space is normal. Straightening of the cervical spine. Postsurgical spinal changes at C5-C6 and C6-C7. No acute fracture, vertebral compression deformity or aggressive osseous lesions. The imaged lung apices are unremarkable. IMPRESSION: No acute fracture.
== END 2025-01-21 23:59 | disposition home or self-care (01) ==
LOC: RAD 05:04
PROVIDERS: ATTEND Nurse Practitioner Family
DX: M54.2 Cervicalgia (principal)
CPT/HCPCS: 72052